=== PATIENT | male | born 1925 | race Caucasian/White ===

== ENCOUNTER → 2016-09-09 | Outpatient (REF) | payer MEDICARE, OTHER ==
[~2016-09-09] MED LIST: /BACTSSTA PO; /WARF25TA PO; AMBI10TA OR; ASPIRIN PO; CALCTAB22 OR; CEFT250T OR; FISH1000 OR; INSULIN SC; LANTINJ4 SC; LISI10TA4 OR; METF500T4 OR; METO50TA4 OR; METOPROLOL PO; MULTIVIT OR; RED YEAST RICE PO
== END ==
LOC: M LAB REF 18:08
PROVIDERS: ATTEND Surgery
DX: C44.41 Basal cell carcinoma of skin of scalp and neck (principal)

== ENCOUNTER → 2016-09-24 | Outpatient (REF) | payer MEDICARE, OTHER ==
[2016-09-24 15:56] LABS: BASO # 0.1 K/mm3 (0.0-0.2); BASO % 0.5 % (0.0-1.0); EOS # 0.2 K/mm3 (0.0-0.50); EOS % 1.5 % (0.0-3.0); LARGE UNSTAINED CELL # 0.2 K/mm3 (0.0-0.4); LARGE UNSTAINED CELL % 1.5 % (0.0-4.0); LYMPH # 2.9 K/mm3 (1.5-4.5); MEAN CORPUSCULAR HEMOGLOBIN 28.4 pg (27.0-33.0); MEAN CORPUSCULAR HGB CONC 31.8 g/dl (32.0-36.5); MEAN CORPUSCULAR VOLUME 89.2 fl (80.0-96.0); MONO # 2.2 K/mm3 (0.0-0.8); MONO % 15.4 % (0.0-5.0); NEUTROPHILS # 8.8 K/mm3 (1.8-7.7); NEUTROPHILS % 62.1 % (36.0-66.0); PLATELET COUNT, AUTOMATED 226 k/mm3 (150-450); RED CELL DISTRIBUTION WIDTH 14.2 % (11.5-14.5); WHITE BLOOD COUNT 14.2 K/mm3 (4.0-10.0)
== END ==
LOC: M LABDRAW1 15:27
PROVIDERS: ATTEND Orthopaedic Surgery
DX: S90.31XA Contusion of right foot, initial encounter (principal); X58.XXXA Exposure to other specified factors, initial encounter; Y92.89 Other specified places as the place of occurrence of the external cause; Y93.89 Activity, other specified; Y99.8 Other external cause status

== ENCOUNTER → 2016-10-16 | Outpatient (REF) | payer MEDICARE, OTHER | LOC: M LAB REF 17:15 | PROVIDERS: ATTEND Surgery | DX: C44.41 Basal cell carcinoma of skin of scalp and neck (principal) ==

== ENCOUNTER 2016-11-15 03:25 | Emergency (ER) | payer MEDICARE, OTHER ==
[~2016-11-15] VITALS: Ht 175.3 cm; Wt 86.2 kg
[2016-11-15] MEDS ORDERED: HYDR10TAB PO (03:59)
[2016-11-15] MEDS ORDERED: INSULADS INJ (03:59)
[2016-11-15] MEDS ORDERED: ATOR1TAB19 PO (03:59)
[2016-11-15] MEDS ORDERED: LOPR1TAB6 PO (03:59)
[2016-11-15 04:30] LABS: BASO % 0.3 % (0.0-1.0); EOS # 0.1 K/mm3 (0.0-0.50); LARGE UNSTAINED CELL # 0.3 K/mm3 (0.0-0.4); LARGE UNSTAINED CELL % 3.3 % (0.0-4.0); LYMPH # 0.7 K/mm3 (1.5-4.5); LYMPH % 7.3 % (24.0-44.0); MEAN CORPUSCULAR HEMOGLOBIN 28.9 pg (27.0-33.0); MEAN CORPUSCULAR HGB CONC 32.6 g/dl (32.0-36.5); MEAN CORPUSCULAR VOLUME 88.6 fl (80.0-96.0); MONO # 2.4 K/mm3 (0.0-0.8); MONO % 23.9 % (0.0-5.0); NEUTROPHILS # 6.3 K/mm3 (1.8-7.7); NEUTROPHILS % 64.3 % (36.0-66.0); PLATELET COUNT, AUTOMATED 170 k/mm3 (150-450); RED CELL DISTRIBUTION WIDTH 13.1 % (11.5-14.5); WHITE BLOOD COUNT 9.8 K/mm3 (4.0-10.0)
--- NOTE | 2016-11-15 04:50 | REPUSA ---
CLINICAL HISTORY: Headache. Trauma. TECHNIQUE: Multiple axial CT images were obtained through the brain without IV contrast material. COMMENTS: There is normal configuration of sella turcica. There are no intra or extra-axial collections. There is no mass effect or midline shift. There is no evidence of hematoma formation. No hydrocephalus is p resent. The ventricles are symmetrical. No abnormal calcifications are present. There is diffuse age-appropriate cerebellar and cerebral atrophy with proportionally dilated ventricl es and cortical sulci. There are bilateral periventricular and subcortical white matter hypolucencies compatible with mild c hronic microvascular disease. Otherwise, no significant focal abnormalities are seen either in the posterior fossa or supratentoria l compartment. IMPRESSION: 1. Age-appropriate cerebellar and cerebral atrophy. 2. Mild chronic microvascular disease. 3. No evidence of acute intracranial pathology. Thank you for your kind referral of this patient.
[2016-11-15 04:56] LABS: CREATININE FOR GFR 2.09 MG/DL (0.70-1.30); POTASSIUM SERUM 4.6 MEQ/L (3.5-5.1)
[2016-11-15 07:58] VITALS: BP 131/72
--- NOTE | 2016-11-15 08:44 | REP ---
REASON: Trauma. COMPARISON: Right knee 06/15/2013. No comparison of the left knee. There is a non-constrained total knee prosthetic device seen on the right unchanged from the prior exam. AP and lateral views of each knee show no evidence of an acute fracture or destructive osseous lesion. There is mild medial compartmental narrowing on the left. IMPRESSION: No evidence of acute disease. Signed by Arash Billy DO 11/15/2016 10:05 A
--- NOTE | 2016-11-15 08:46 | REP ---
REASON: Pain after trauma. COMPARISON: None. There is asymmetric AC joint space narrowing and marginal osteophytosis with marginal osteophytosis of the humeral head, which resides superior subluxed in the glenohumeral joint but without complete dislocation. The subacromial space is markedly narrowed. There is no evidence of an acute fracture or dislocation. IMPRESSION: Chronic changes and other findings as described above. Signed by Arash Billy DO 11/15/2016 10:05 A
--- NOTE | 2016-11-16 06:36 | ECGEPIP ---
Stationary ECG Study [facility] - ED Test Date: 2016-11-15 Pat Name: SHWETA CLARK JR Department: Room: - Gender: M Fresh Work Inspector: dyllan : 1925 Requested By: KE Pandya Order Number: [id number] Reading MD: Ambrosio Cross Measurements Intervals [place] Rate: 89 P: 9 ME: 159 QRS: -29 QRSD: 138 T: -7 QT: 372 QTc: 453 Interpretive Statements SINUS RHYTHM WITH OCCASIONAL SUPRAVENTRICULAR PREMATURE COMPLEXES BORDERLINE LEFT AXIS DEVIATION RIGHT BUNDLE BRANCH BLOCK LAD NONSPECIFIC ST T WAVE CHANGES CW 06/02/13 - RATE INCREASED NONSPECIFIC ST T WAVE CHANGES Electronically Signed On 11-16-2016 6:36:01 EDT by Ambrosio Cross
== END 2016-11-15 07:58 | disposition home or self-care (01) ==
LOC: EDBD 03:25 → M ED 04:46
DX: R29.6 Repeated falls (principal); E11.9 Type 2 diabetes mellitus without complications; Z79.899 Other long term (current) drug therapy; Z79.4 Long term (current) use of insulin

== ENCOUNTER 2016-11-17 19:32 | Inpatient (IN) | payer MEDICARE, OTHER ==
[~2016-11-17] VITALS: Ht 175.3 cm; Wt 81.0 kg
[~2016-11-17 19:32] MED LIST changes: +ATOR1TAB19 PO; +HYDR10TAB PO; +INSULADS INJ; +LOPR1TAB6 PO
[2016-11-17 20:05] LABS: ABG BASE EXCESS -6.9 (-2.0-2.0); ABG HCO3 16.4 MEQ/L (22.0-26.0); ABG PARTIAL PRESSURE CO2 26.6 mmHg (35.0-45.0); ABG PARTIAL PRESSURE O2 83.4 mmHg (75.0-100.0); ABG STANDARD HCO3 18.8 MEQ/L (22.0-26.0); ABG TOTAL CO2 17.2 MEQ/L (23.0-31.0); ABG pH (ARTERIAL) 7.408 UNITS (7.350-7.450)
[2016-11-17] MEDS: IPRATROPIUM 0.5MG/ALBUTEROL 2.5MG INH SOL UD 3ML (DUONEB)(J7620) NEB PRN ×3 (20:05→20:38)
[2016-11-17 20:31] LABS: CREATININE FOR GFR 2.63 MG/DL (0.70-1.30); GLOMERULAR FILTRATION RATE 24.5 (>35)
[2016-11-17 20:39] LABS: MEAN CORPUSCULAR HEMOGLOBIN 28.5 pg (27.0-33.0); MEAN CORPUSCULAR VOLUME 86.1 fl (80.0-96.0); PLATELET COUNT, AUTOMATED 144 k/mm3 (150-450); RED CELL DISTRIBUTION WIDTH 13.1 % (11.5-14.5); WHITE BLOOD COUNT 23.4 K/mm3 (4.0-10.0)
[2016-11-17] MEDS ORDERED: METOPROLOL SUCC *XL* 25MG TAB (TopROL *XL*) PO SCH (21:00)
[2016-11-17] MEDS ORDERED: PIPERACILLIN/TAZOBACTAM SOD 3.375 GM in D5W MINI-BAG PLUS 50 ML IV ONE (21:00)
[2016-11-17] MEDS ORDERED: ATORVASTATIN 10 MG TAB PO SCH (21:00)
[2016-11-17] MEDS ORDERED: **hydrALAZINE** 10 MG TAB PO SCH (21:00)
[2016-11-17] MEDS ORDERED: NS 500 ML IV ONE (21:00)
[2016-11-17] MEDS ORDERED: METO-207 PO (21:31)
[2016-11-17] MEDS ORDERED: DIPH25CA PO (21:31)
[2016-11-17 21:39] LABS: BANDS 10 % (< 11)
[2016-11-17] MEDS ORDERED: GLUCOSE 4 GM CHEW TABLET PO PRN (22:00)
[2016-11-17] MEDS ORDERED: DEXTROSE 50% 50 ML SYRINGE IV PRN (22:00)
[2016-11-17] MEDS ORDERED: GLUCAGON FOR INJ 1 MG VIAL (J1610) SC PRN (22:00)
[2016-11-17] MEDS ORDERED: NS 1,000 ML IV SCH (22:04)
[2016-11-17] MEDS ORDERED: ACETAMINOPHEN TAB 650MG DOSE (2X325MG) PO PRN (22:15)
[2016-11-17] MEDS ORDERED: IPRATROPIUM 0.02% SOLN 0.5MG/2.5 ML NEB INH PRN (22:15)
[2016-11-17] MEDS ORDERED: LEVALBUTEROL 1.25 MG/0.5 ML CONCENTRATE NEB INH PRN (22:15)
[2016-11-17] MEDS ORDERED: ONDANSETRON 4MG/2ML VIAL (J2405) IV PRN (22:15)
[2016-11-17] MEDS: IPRATROPIUM 0.5MG/ALBUTEROL 2.5MG INH SOL UD 3ML (DUONEB)(J7620) NEB SCH ×3 (22:25→23:04)
[2016-11-17 23:39] LABS: ABG BASE EXCESS -11.6 (-2.0-2.0); ABG HCO3 14.5 MEQ/L (22.0-26.0); ABG PARTIAL PRESSURE CO2 33.7 mmHg (35.0-45.0); ABG PARTIAL PRESSURE O2 67.7 mmHg (75.0-100.0); ABG STANDARD HCO3 15.2 MEQ/L (22.0-26.0); ABG TOTAL CO2 15.5 MEQ/L (23.0-31.0); ABG pH (ARTERIAL) 7.252 UNITS (7.350-7.450)
[2016-11-17 23:53] VITALS: O2SAT 86
[2016-11-18 00:37] VITALS: BP 143/61
--- NOTE | 2016-11-18 00:49 | HPE ---
DATE OF ADMISSION: 11/17/2016 PRIMARY CARE PHYSICIAN: Juan Carlos Pickard CHIEF COMPLAINT: Difficulty with breathing. HISTORY OF THE PRESENT ILLNESS: The patient is an 89-year-old man who actually presented to the emergency room on 11/15/2016. At that time, he had had complaints of upper respiratory infection symptoms for 1 week. It was felt that he was likely have a viral upper respiratory infection, and he was discharged home. The patient has a history of advanced dementia. Since being discharged home from the emergency room (ER), he has had poor oral intake and has become more confused than he is at his baseline. Last night, the patient had an episode of nausea and vomiting. Since then, he has been short of breath. He did have a coughing fit after the vomiting episode. Emergency medical services (EMS) was called to the residence, and he was found to be quite hypoxic. In the field, he was actually placed on continuous positive airway pressure (CPAP). This was weaned downstairs in the emergency room. At the present time, the patient tells me he feels well. He has no complaints. He knows he is in the hospital. He knows he is in [place], but he thinks the year is 1973. Despite looking like he is in some respiratory distress, he does not have any complaints and denies all symptoms. PAST MEDICAL HISTORY: Advanced dementia. Type 2 diabetes, insulin dependent. Chronic kidney disease. Coronary artery disease, status post stent. Hypertensive heart disease. Dyslipidemia. Diastolic congestive heart failure. Myelodysplastic syndrome. Bladder cancer, status post chemo. Hearing loss. ALLERGIES: No known drug allergies. SURGICAL HISTORY: Coronary stent. Status post transurethral resection of prostate. Left rotator cuff repair. SOCIAL HISTORY: The patient is DO NOT RESUSCITATE (DNR), DO NOT INTUBATE (DNI). He lives with his son and . He is a former smoker. His 's name is Falguni. He apparently does not use any alcohol products. FAMILY HISTORY: Noncontributory. REVIEW OF SYSTEMS: Negative other than in the history of the present illness (HPI). The patient has no known drug allergies. HOME MEDICATIONS: - diphenhydramine 25 mg by mouth nightly as needed for sleep - Lantus 40 units nightly - atorvastatin 10 mg nightly - hydralazine 10 mg three times a day - metoprolol succinate 25 mg nightly PHYSICAL EXAMINATION: Maximum temperature (T max) 99.2, pulse 95, respiratory rate 28, blood pressure 146/60, oxygen saturation 94% on 100% Venturi mask. GENERAL: He is a frail, elderly, man sitting up on the stretcher. He appears tachypneic and using accessory muscle use and short of breath. HEENT: Poor dentition. Very dry mucous membranes. He follows basic commands. CARDIOVASCULAR EXAM: S1, S2, tachycardic but regular. RESPIRATORY EXAM: Diffuse rhonchi, rales, transmitted upper airway sounds. ABDOMINAL EXAM: Bowel sounds are present. The abdomen is soft. EXTREMITIES: No clubbing, cyanosis or edema. LABORATORY STUDIES: WBC 23.4, hemoglobin 10.5, hematocrit 31.8, platelet count 144. Chemistry panel: Sodium 131 down from 140 48 hours ago, potassium 4.0, chloride 96, bicarbonate 18 down from 22 48 hours ago, creatinine 2.6 up from 2.0. His baseline appears to be approximately 1.9. Fingerstick is 404, lactic acid elevated at 2.7. CK is elevated at 1644. Troponin is equivocal at 0.78. BNP is elevated at 596. The patient previously had a TSH within normal limits. UA from 11/15/2016 was unremarkable. Microbiology: Urine culture from 11/15/2016 was negative. An influenza swab on 11/15/2016 was negative. Blood cultures from today are pending and influenza swab from today is negative. IMAGING: The patient did have a CT scan of his head, which revealed mild chronic microvascular disease, no acute intracranial pathology. He had a chest x-ray that was concerning for multifocal pneumonia. ASSESSMENT AND PLAN: This is an 89-year-old man with advanced dementia, presenting now with acute on chronic metabolic encephalopathy with likely aspiration pneumonia. PROBLEMS: 1. Hypoxic respiratory failure. The patient was on continuous positive airway pressure (CPAP) in the field. He has been weaned to 100% Venturi mask. At this time, he does appear to be doing better with nebulizer treatments, and as such, I will continue on nebulizer treatments. There is concern for an aspiration event, and as such, he has been empirically covered with Zosyn, which I will continue. We will check respiratory and GI PCR panels to elucidate if there is a viral etiology for his symptoms that he has been experiencing for the last several days prior to his hospitalization today etiology for his nausea, vomiting, poor oral intake and weakness. He does have an elevated lactic acid. He will be provided with gentle IV fluids. I suspect that his acute kidney injury, hyponatremia and hypochloridemia are all related to his dehydration. Please note that the patient did have an arterial blood gas that revealed a pH of 7.4, pCO2 of 26.6 and a pO2 of 83.4. 2. Elevated fasting glucose. The patient is likely having an active infection stress response in the setting of insulin-dependent diabetes. He will be placed on sliding scale insulin for the time being. As we are concerned for aspiration, he is nothing by mouth and will have a swallow evaluation. Will check fingersticks and cover him every 6 hours. 3. Rhabdomyolysis. The patient had been having falls the last several days likely related to this. We will place him on normal saline and recheck and trend these values. 4. Acute on chronic kidney disease. As outlined above, likely secondary to dehydration. Will gently hydrate and recheck. 5. Anemia. Appears to be fairly chronic, likely related to myelodysplastic disorder. 6. Dyslipidemia. Continue with atorvastatin. 7. Hypertension. We will continue with hydralazine and metoprolol with holding parameters. 8. Deep vein thrombosis (DVT) prophylaxis. The patient will be on heparin. DISPOSITION: The patient is admitted to the progressive care unit to Dr. Harvey's service. The patient does have an equivocal troponin. We will trend this. His EKG did not have concerning changes. I did discuss with the patient's if he does rule, they do not wish to pursue any cardiac catheterization. As such, we will treat medically. The patient is a DNR/DNI.
[2016-11-18] MEDS ORDERED: MORPHINE 2 MG/ML 1ML SYRINGE IV PRN (01:00)
[2016-11-18] MEDS ORDERED: MORPHINE 10MG/0.5ML ORAL CONCENTRATE SOLUTION U/D SL PRN (01:00)
[2016-11-18] MEDS ORDERED: LORazepam 1 MG TAB PO PRN (01:00)
[2016-11-18] MEDS ORDERED: SCOPOLAMINE 1.5 MG TRANSDERMAL TD PRN (01:00)
[2016-11-18] MEDS ORDERED: LORazepam 2 MG/ML VIAL (J2060) IV PRN (01:00)
--- NOTE | 2016-11-18 01:10 | REPUSA ---
CLINICAL HISTORY: Pneumonia versus pulmonary edema. TECHNIQUE: Multiple axial CT images were obtained through the thorax without IV contrast material. COMMENTS: Multifocal consolidations are noted in the right upper lobe, right middle lobe and the left lower lob e. Surrounding groundglass densities. Mild central pulmonary venous congestion. Heavy atherosclerotic vascular disease of the coronary arteries. Mild elevation of the right hemidiaphragm with underlying atelectatic pulmonary changes. There is no evidence of pleural or parenchymal-based mass. There are no pleural effusions. There is n o evidence of hilar or mediastinal lymphadenopathy. The heart and great vessels are within normal melendez its. The visualized portions of the liver are of uniform attenuation without mass or defect. There is no i ntra or extrahepatic biliary ductal dilatation. The spleen is unremarkable. The visualized pancreas i s of normal contour and attenuation characteristics. There is no evidence of adrenal mass. The visual ized portions of the kidneys present no abnormalities. The bony structures are free of lytic or blastic lesions. IMPRESSION: Multifocal pulmonary consolidation suggestive of multifocal pneumonia. Bilateral changes of bronchitis. Mild central pulmonary venous congestion. Thank you for your kind referral of this patient.
[2016-11-18] MEDS: HumaLOG INSULIN (NovoLOG) PER UNIT SC SCH ×2 (01:53→06:00)
--- NOTE | 2016-11-18 02:34 | IPN ---
DATE OF SERVICE: 11/18/2016 Event Note For full details, please see history and physical dictated on 11/17/2016. Notified by intensive care unit (ICU) nursing staff that the patient's heart rate is significantly elevated to the 200s. He is exhibiting hypoxia and agitation. Patient is seen and examined at bedside at this time. He appears to be in hypoxic respiratory failure. I did once again speak with his , Falguni and son and explained the situation to them. They understand that he is quite ill. They have elected for COMFORT MEASURES ONLY/DO NOT RESUSCITATE/DO NOT INTUBATE. They do not wish any aggressive measures to be taken. They do not wish any further blood draws. Vital signs to be checked and monitors to be checked. They wish for him to be only kept comfortable. I did inform them that I feel as though he is in the last hours of his life and may not make it through the night. The family is on their way in to his bedside. Verbal consent for DO NOT RESUSCITATE/DO NOT INTUBATE/COMFORT MEASURES ONLY has been taken with two ICU nurses as witnesses. A Medical Orders for Life-Sustaining Treatment (MOLST) form was completed. Orders have been entered.
[2016-11-18] MEDS ORDERED: PIPERACILLIN/TAZOBACTAM SOD 3.375 GM in D5W MINI-BAG PLUS 50 ML IV SCH (06:00)
[2016-11-18] MEDS ORDERED: LEVALBUTEROL 1.25 MG/0.5 ML CONCENTRATE NEB INH SCH (08:00)
[2016-11-18] MEDS ORDERED: IPRATROPIUM 0.02% SOLN 0.5MG/2.5 ML NEB INH SCH (08:00)
--- NOTE | 2016-11-18 08:36 | REP ---
Portable chest x-ray: Single view. History: Dyspnea and cough. Comparison study June 18, 2013. Findings: There is an infiltrate above the minor fissure in the right upper lobe consistent with pneumonia. Right hemidiaphragm is again noted to be elevated. There is some mild chronic fiber atelectatic change just above it in the right base. EKG monitoring electrodes and oxygen delivery tubing are seen. The left lung is clear. Impression: Right upper lobe infiltrate. Signed by Noel Houston MD 11/18/2016 01:07 P
[2016-11-18] MEDS ORDERED: HEPARIN SOD (PORCINE) 5000 UNITS/ML VIAL SC SCH (09:00)
--- NOTE | 2016-11-18 09:59 | ECGEPIP ---
Stationary ECG Study [facility] - ED Test Date: 2016-11-17 Pat Name: SHWETA CLARK JR Department: Room: [place] [address] Gender: M Plan Consultant: rosemary : 1925 Requested By: KE Pandya Order Number: [id number] Reading MD: Joanna Billings Measurements Intervals [place] Rate: 125 P: 41 ID: [id number] QRS: -58 QRSD: 122 T: 8 QT: 319 QTc: 461 Interpretive Statements SINUS TACHYCARDIA WITH FREQUENT SUPRAVENTRICULAR PREMATURE COMPLEXES RIGHT BUNDLE BRANCH BLOCK LEFT ANTERIOR FASCICULAR BLOCK INFERIOR MYOCARDIAL INFARCTION, PROBABLY OLD INCREASED RATE 11/15/16 Electronically Signed On 11-18-2016 9:05:34 EDT by Joanna Billings
--- NOTE | 2016-11-18 16:26 | DSES ---
DATE OF ADMISSION: 11/17/2016 DATE OF DISCHARGE: 11/18/2016 REASON FOR ADMISSION: Difficulty breathing. FINAL DIAGNOSES: 1. Hypoxic respiratory failure. 2. Positive influenza A. 3. Elevated fasting glucose. 4. Rhabdomyolysis. 5. Acute on chronic kidney injury. 6. Anemia. 7. Dyslipidemia. 8. Hypertension. HISTORY OF PRESENT ILLNESS: The patient is an 89-year-old male who presented to the emergency room complaining of upper respiratory infection symptoms for 1 week. It was felt that he likely had a viral upper respiratory infection, was discharged home. The patient has history of advanced dementia. Since discharged home from the emergency room he has had poor intake. He is confused at baseline. The night prior to admission the patient had an episode of nausea and vomiting. He became short of breath, started coughing and had one episode of vomiting after a coughing fit. In the emergency room the patient was found to be hypoxic. He was placed on CPAP machine. Was admitted under hospitalist service. He is DO NOT RESUSCITATE, DO NOT INTUBATE. Overnight his respiratory status worsened. Dr. Mathew had a conversation with his and son. At this point they elected to make the patient comfort measures only. Aggressive measures were no longer taken. They did not wish for any further blood draws, vital signs or any monitoring. Everything was discontinued at this time except for pain and anxiety medication. Two ICU nurses witnessed this and the patient was transferred to the floor after he was made comfort measures only. The patient at 01:15 p.m. secondary to cardiopulmonary arrest secondary to respiratory failure likely secondary to influenza.
== END 2016-11-18 13:50 | disposition expired | DRG 193 ==
LOC: EDBD 19:32 → M ED 20:23 → M ED INP 22:04 → M ICU 11-18 00:26 → M MSPAV 11-18 02:31
PROVIDERS: ADMIT Internal Medicine; ATTEND Internal Medicine
DX: J10.1 Influenza due to other identified influenza virus with other respiratory manifestations (principal); J96.91 Respiratory failure, unspecified with hypoxia; M62.82 Rhabdomyolysis; I50.30 Unspecified diastolic (congestive) heart failure; N17.9 Acute kidney failure, unspecified; F03.90 Unspecified dementia, unspecified severity, without behavioral disturbance, psychotic disturbance, mood disturbance, and anxiety; E78.5 Hyperlipidemia, unspecified; I11.0 Hypertensive heart disease with heart failure; Z66 Do not resuscitate; Z51.5 Encounter for palliative care; R29.6 Repeated falls; D46.9 Myelodysplastic syndrome, unspecified; I25.10 Atherosclerotic heart disease of native coronary artery without angina pectoris; E11.9 Type 2 diabetes mellitus without complications; Z79.4 Long term (current) use of insulin; Z79.899 Other long term (current) drug therapy; Z87.891 Personal history of nicotine dependence; Z95.9 Presence of cardiac and vascular implant and graft, unspecified; Z92.21 Personal history of antineoplastic chemotherapy; Z85.51 Personal history of malignant neoplasm of bladder